=== PATIENT | male | born 1945 | race Caucasian/White ===

== ENCOUNTER → 2017-03-05 | Outpatient (CLI) | payer OTHER | LOC: COL.LAB 15:58 | DX: Z01.812 Encounter for preprocedural laboratory examination (principal) ==

== ENCOUNTER → 2021-02-06 | Outpatient (CLI) | payer OTHER | LOC: COL.RAD 12:23 | DX: M25.551 Pain in right hip (principal) | CPT/HCPCS: J3301; Q9967 ==

== ENCOUNTER 2022-03-25 09:27 | Day surgery (SDC) | payer OTHER ==
[2022-03-25] VITALS (8 sets, daily range): BP systolic 119–148; BP diastolic 80–115; PULSE 60–76; TEMP 97.6
[~2022-03-25] VITALS: Ht 188.1 cm; Wt 102.3 kg
[2022-03-25] MEDS ORDERED: ELIQUIS 5MG PO (10:13)
[2022-03-25] MEDS ORDERED: ACCUPRIL10 M1 PO (10:13)
[2022-03-25] MEDS ORDERED: LIPITOR20 MG PO (10:13)
[2022-03-25] MEDS ORDERED: BETAPACE 120MG120 MG PO (10:13)
[2022-03-25] MEDS ORDERED: ONE-A-DAY ESSE1 EACH PO (10:14)
[2022-03-25] MEDS ORDERED: STROMECTOL3 MG PO (10:14)
[2022-03-25] MEDS ORDERED: VITAMIN C500 MG PO (10:15)
[2022-03-25] MEDS ORDERED: MAGNESIUM250 M1 PO (10:15)
[2022-03-25] MEDS ORDERED: PHARMASSURE ZIN50 MG PO (10:16)
[2022-03-25 10:33] LABS: HEMATOCRIT 40.4 % (42.0-52.0); HEMOGLOBIN 13.5 g/dl (13.5-18.0); MEAN CELL VOLUME 94 fl (80.0-100.0); MEAN CORPUSCULAR HEMOGLOBIN 32 pg (27-31); MEAN CORPUSCULAR HGB CONC 33 g/dl (33.0-37.0); MEAN PLATELET VOLUME 9.6 fl (7.4-10.4); PLATELET COUNT 163 K/mm3 (130-400); RED BLOOD COUNT 4.29 M/mm3 (4.20-5.60); REDCELL DISTRIBUTION WIDTH-CV 13.6 % (11.5-14.5)
[2022-03-25 10:47] LABS: CALCIUM 9.1 mg/dL (8.4-10.2); CREATININE, serum 0.85 mg/dL (0.72-1.25); POTASSIUM 4.3 mmol/L (3.5-4.5)
[2022-03-25 10:57] LABS: INR 1.2 (0.8-3.0); PROTHROMBIN TIME 13.4 SECONDS (9.7-12.8)
--- NOTE | 2022-03-25 12:07 | NUR ---
See merge for all medication, assessment, intervention, and vital sign times.
--- NOTE | 2022-03-25 14:15 | NUR ---
Spoke with Dr Benitez who confirms that pt can recover x1 hour and then discharge home as he had previously discussed with pt. Pt and updated that Dr Benitez will complete DC paperwork and they can be discharged upon completion of paperwork. They deny current needs. Pt has been snacking on grahams and peanut butter. Dressing remains clean, dry and intact.
--- NOTE | 2022-03-25 14:30 | NUR ---
Pt requests to be disconnected from satellite project site monitor and vitals so he may get dressed. He is steady on feet in room. Dressing remains clean, dry and intact. Awaiting completion of discharge packet by Dr Benitez.
[2022-03-25] MEDS ORDERED: CEPHALEXIN500 M1 PO (14:57)
--- NOTE | 2022-03-25 15:15 | NUR ---
DC paperwork reviewed with pt and . Both express understanding. Pt has been ambulatory to restroom with steady gait. Dressing over gen change site remains clean, dry and intact. INT DC'd with catheter intact. Pt is assisted out to 's car by wheelchair with belongings.
== END 2022-03-25 15:15 | disposition home or self-care (01) ==
LOC: COL.CAR 09:27
PROVIDERS: Internal Medicine Cardiovascular Disease
DX: Z45.010 Encounter for checking and testing of cardiac pacemaker pulse generator [battery] (principal); I49.5 Sick sinus syndrome
CPT/HCPCS: C1785; J2250; J3010; J7030